=== PATIENT | male | born 1960 | race Caucasian/White ===

== ENCOUNTER 2024-06-16 08:00 | Outpatient (CLI) | payer OTHER ==
[2024-06-16 15:43] LABS: BILIRUBIN,URINE NEGATIVE (NEGATIVE); GLUCOSE, URINE (UA) NEGATIVE (NEGATIVE); KETONES,URINE (UA) NEGATIVE (NEGATIVE); LEUKOCYTE ESTERASE, URINE NEGATIVE (NEGATIVE); NITRITE,URINE NEGATIVE (NEGATIVE); OCCULT BLOOD,URINE NEGATIVE (NEGATIVE); PROTEIN,URINE NEGATIVE (NEGATIVE); UROBILINOGEN,URINE 0.2 (NORMAL) E.U./dL (NORMAL)
[2024-06-16 15:51] LABS: BACTERIA,URINE None Seen /HPF (None Seen); CLARITY,URINE CLEAR (CLEAR); RBC,URINE None Seen /HPF (0-5); SQUAMOUS EPITHELIAL CELL,UR NONE SEEN (<= Few); WBC,URINE 0-3 /HPF (0-3)
== END 2024-06-16 23:59 | disposition home or self-care (01) ==
LOC: LAB 08:00
PROVIDERS: ATTEND Urology
DX: R31.9 Hematuria, unspecified (principal); C61 Malignant neoplasm of prostate
CPT/HCPCS: 36415; 81001; 84153; 87086

== ENCOUNTER 2024-06-16 09:51 | Outpatient (CLI) | payer OTHER | END 2024-06-16 09:52 | disposition home or self-care (01) | LOC: LAB 09:51 | DX: C61 Malignant neoplasm of prostate (principal) | CPT/HCPCS: 36415; 84153 ==

== ENCOUNTER 2024-06-23 08:08 | Outpatient (CLI) | payer OTHER ==
--- NOTE | 2024-06-23 18:14 | XRAY Report ---
PROCEDURE: Shoulder 2+V RT INDICATIONS: SHOULDER JOINT PAIN, RIGHT TECHNIQUE: 3 views of the shoulder were acquired. COMPARISON: None. FINDINGS: Bones: No fractures or dislocations. No suspicious bony lesions. Visualized ribs appear intact. Degenerative changes are seen, including subacromial spurring. Soft tissues: There is calcific tendinopathy seen. The visualized lungs are within normal limits. IMPRESSION: Degenerative changes are seen by plain film, including subacromial spurring. If it would be helpful for clinical management decision making, please consider a dedicated, schedule d shoulder MRI for further evaluation (assuming that there is no contraindication). Reviewed by: Jose Martin Raza MD on 06/23/2024 5:12 PM LOGAN Approved by: Jose Martin Raza MD on 06/23/2024 5:12 PM LOGAN Station ID: [id number]
== END 2024-06-23 08:09 | disposition home or self-care (01) ==
LOC: DI.N 08:08
DX: M19.011 Primary osteoarthritis, right shoulder (principal)